=== PATIENT | female | born 1980 | race Hispanic/Latino ===

== ENCOUNTER 2019-06-04 07:32 | Outpatient (CLI) | payer BC ==
--- NOTE | 2019-06-04 08:37 | ULT ---
ULTRASOUND ABDOMEN: HISTORY: Postprandial abdominal pain and dark stools FINDINGS: The liver, spleen, gallbladder, pancreas, kidneys and visualized portions of the aorta and IVC appear normal. The common duct measures 1mm in diameter. No free fluid is seen. IMPRESSION: Normal exam.
== END 2019-06-04 07:33 | disposition home or self-care (01) ==
LOC: ULT 07:32
PROVIDERS: ATTEND Family Medicine
DX: K92.1 Melena (principal); R14.0 Abdominal distension (gaseous)
CPT/HCPCS: 76700

== ENCOUNTER 2019-09-30 09:00 | Outpatient (CLI) | payer BC ==
--- NOTE | 2019-09-30 09:45 | BD ---
DEXA BONE DENSITY STUDY: Date: 09/30/19 HISTORY: Postmenopausal. FINDINGS: Lumbar Spine: BMD (g/cm2) L1 0.982 T-Score: -0.1 L2 0.987 T-Score: -0.4 L3 1.055 T-Score: -0.3 L4 0.955 T-Score: -0.6 Total 1.006 T-Score: -0.4 Left Femoral Neck: 0.708 T-Score: -1.3 Total Femur: 1.005 T-Score: +0.5 IMPRESSION: 1. Osteopenia of the left femoral neck. 2. Normal bone mineral density of the lumbar spine. 3. 10 year fracture risk for major osteoporotic fracture is 2.2% and for a hip fracture is 0.1%. Fra cture probabilities are calculated for an untreated patient. POS: [facility]
== END 2019-09-30 09:01 | disposition home or self-care (01) ==
LOC: BICMAMMO 09:00
PROVIDERS: ATTEND Physician Assistant Medical
DX: Z13.820 Encounter for screening for osteoporosis (principal); D50.9 Iron deficiency anemia, unspecified; K90.0 Celiac disease; M85.852 Other specified disorders of bone density and structure, left thigh
CPT/HCPCS: 77080

== ENCOUNTER 2022-05-17 22:13 | Observation (INO) | payer BC ==
[2022-05-17] MEDS ORDERED: Famotidine/PF 20 mg/2ml Vial ONE (23:32)
[2022-05-17] MEDS ORDERED: methylPREDNISolone Sod Succ/PF 125 MG/2 ML VIAL ONE (23:32)
[2022-05-17] MEDS ORDERED: diphenhydrAMINE 50 MG/ML VIAL ONE (23:32)
[2022-05-17] MEDS ORDERED: Ondansetron PF 4 MG/2 ML Vial ONE (23:33)
[2022-05-18] LABS: #Eosinphils 0.3 thou/uL (0.0-0.7); #Lymphocytes 0.4 thou/uL (1.20-3.40); #Monocytes 0.3 thou/uL (0.11-0.59); #Neutrophils 2.4 thou/uL (1.40-6.50); %Basophils 0.8 % (0.0-1.0); %Eosinophils 7.8 % (0.0-10.0); %Lymphocytes 11.1 % (21.0-51.0); %Monocytes 8.1 % (0.0-10.0); %Neutrophils 72.3 % (42.0-75.0); Elliptocytes SLIGHT = 2-5 cells (100X) (0-1/hpf); Hemoglobin 11.2 g/dL (12.0-16.0); MDiff Complete? YES; Mean Corpuscular HGB CONC 33.7 g/dL (32.0-36.0); Mean Corpuscular Hemoglobin 27.7 pg (27.0-31.0); Mean Corpuscular Volume 82.1 fL (78.0-98.0); Mean Platelet Volume 10.4 fL (7.4-10.4); Platelet Count 115 thou/uL (130-400); Platelet Morphology Comment Appears Decreased; RBC Distribution Width 14.8 % (11.5-14.5); Red Blood Cell (RBC) Count 4.04 mill/uL (4.20-5.40); White Blood Cell (WBC) Count 3.4 thou/uL (4.8-10.8)
[2022-05-18 00:01] LABS: ALT (SGPT) 21 U/L (8-55); AST (SGOT) 23 U/L (5-34); Albumin 3.7 g/dL (3.5-5.0); Alkaline Phosphatase 47 U/L (40-110); Anion Gap 13 mmol/L (10-20); BUN (Urea Nitrogen) 9 mg/dL (7.0-18.7); Bilirubin, Total 0.2 mg/dL (0.2-1.2); Calc. Creatinine Clearance 0 mL/min (70-130); Calcium 8.4 mg/dL (7.8-10.44); Carbon Dioxide 24 mmol/L (22-29); Chloride 101 mmol/L (98-107); Estimated GFR 91; Globulin 2.9 g/dL (2.4-3.5); Glucose 106 mg/dL (70-105); Potassium 3.5 mmol/L (3.5-5.1); Protein, Total 6.6 g/dL (6.0-8.3); Sodium 134 mmol/L (136-145)
[2022-05-18 01:34] LABS: Bilirubin Negative (Negative); Blood, Urine Negative (Negative); Clarity Clear (Clear); Glucose, Urine (Dipstick) Normal (Negative); Ketone, Urine Negative (Negative); Leukocyte Negative Leu/uL (Negative); Nitrite Negative (Negative); Protein, Urine (Dipstick) Negative (Neg-Trace); Specific Gravity, Urine 1.006 (1.002-1.036); Urobilinogen Normal mg/dL (Less than 2)
[2022-05-18] MEDS ORDERED: CEFAZOLIN 2 GM VIAL ONE (02:18)
[2022-05-18] MEDS ORDERED: Ketorolac Tromethamine 30 MG/ML VIAL ONE (02:18)
[2022-05-18 04:02] LABS: SARS-CoV-2 NAA Rapid Test Not Detected (NotDetected)
[2022-05-18] MEDS ORDERED: Vancomycin 1 GM/200 ML BAG ONE (04:18)
[2022-05-18] MEDS ORDERED: Ondansetron PF 4 MG/2 ML Vial IVP PRN (04:45)
[2022-05-18] MEDS ORDERED: Ondansetron ODT 4 MG TAB SL PRN (04:45)
[2022-05-18] MEDS ORDERED: Sodium Chloride 0.9% 1,000 ML IV SCH (04:45)
[2022-05-18] MEDS ORDERED: Acetaminophen 325 MG TAB PO PRN (04:45)
[2022-05-18 04:59] VITALS: BMI 22.4
[2022-05-18] MEDS: Famotidine 20 MG TAB PO SCH ×2 (10:06→20:39)
[2022-05-18] MEDS: Sodium Chloride 0.9% 1,000 ML IV SCH ×2 (10:10→19:42)
[2022-05-18] MEDS: methylPREDNISolone Sod Succ 40 MG VIAL IVP SCH (15:03)
[2022-05-18] MEDS: Acetaminophen 325 MG TAB PO PRN ×2 (16:11→22:40)
[2022-05-18] MEDS: diphenhydrAMINE 25 MG CAP PO PRN (22:40)
[2022-05-19] MEDS: methylPREDNISolone Sod Succ 40 MG VIAL IVP SCH (03:30)
[2022-05-19 05:30] LABS: #Eosinphils 0.1 thou/uL (0.0-0.7); #Monocytes 0.3 thou/uL (0.11-0.59); #Neutrophils 2.4 thou/uL (1.40-6.50); %Eosinophils 1.8 % (0.0-10.0); %Lymphocytes 25.4 % (21.0-51.0); %Monocytes 7.9 % (0.0-10.0); %Neutrophils 64.9 % (42.0-75.0); Hemoglobin 9.8 g/dL (12.0-16.0); Mean Corpuscular HGB CONC 31.3 g/dL (32.0-36.0); Mean Corpuscular Hemoglobin 26.7 pg (27.0-31.0); Mean Corpuscular Volume 85.3 fL (78.0-98.0); Mean Platelet Volume 10.4 fL (7.4-10.4); Platelet Count 146 thou/uL (130-400); RBC Distribution Width 14.8 % (11.5-14.5); Red Blood Cell (RBC) Count 3.68 mill/uL (4.20-5.40); White Blood Cell (WBC) Count 3.7 thou/uL (4.8-10.8)
[2022-05-19 05:50] LABS: Anion Gap 10 mmol/L (10-20); BUN (Urea Nitrogen) 7 mg/dL (7.0-18.7); Calc. Creatinine Clearance 109 mL/min (70-130); Calcium 7.9 mg/dL (7.8-10.44); Carbon Dioxide 23 mmol/L (22-29); Chloride 108 mmol/L (98-107); Estimated GFR 114; Glucose 136 mg/dL (70-105); Potassium 4.2 mmol/L (3.5-5.1); Sodium 137 mmol/L (136-145)
[2022-05-19] MEDS: Sodium Chloride 0.9% 1,000 ML IV SCH (06:10)
[2022-05-19] MEDS: Famotidine 20 MG TAB PO SCH (09:16)
[2022-05-19 12:15] VITALS: BP 111/62; TEMP 98.1
[2022-05-19] MEDS: diphenhydrAMINE 25 MG CAP PO PRN (12:16)
== END 2022-05-19 14:15 | disposition home or self-care (01) ==
LOC: ERS 22:13 → SURG A 05-18 02:50
PROVIDERS: ADMIT Internal Medicine; ATTEND Internal Medicine
DX: L03.115 Cellulitis of right lower limb (principal); L03.116 Cellulitis of left lower limb; D64.9 Anemia, unspecified; K90.0 Celiac disease; D61.818 Other pancytopenia; M85.80 Other specified disorders of bone density and structure, unspecified site; Z20.822 Contact with and (suspected) exposure to COVID-19; Z79.899 Other long term (current) drug therapy; Z88.2 Allergy status to sulfonamides
CPT/HCPCS: 36415; 80048; 80053; 81003; 85025; 87040; 96361; 96365; 96366; 96375; 96376; 97139; G0378; J0690; J1200; J1885; J2405; J2920; J2930; J3370; J7050; S0028

== ENCOUNTER 2025-10-23 11:08 | Outpatient (CLI) | payer BC | END 2025-10-23 11:09 | disposition home or self-care (01) | LOC: ULT 11:08 | PROVIDERS: ATTEND Family Medicine | DX: R10.9 Unspecified abdominal pain (principal) | CPT/HCPCS: 76700; 93976 ==